=== PATIENT | male | born 1990 | race Caucasian/White ===

== ENCOUNTER 2021-03-31 07:49 | Outpatient (REF) | payer OTHER, SELFPAY ==
--- NOTE | ~2021-03-31 | MR_ITS ---
EXAMINATION: MR CERVICAL SPINE WITHOUT CONTRAST CLINICAL INFORMATION: Cervicalgia. Radiculopathy. Left finger numbness or weakness. COMPARISON: None TECHNIQUE: MRI of the cervical spine was obtained using routine sequences without contrast. FINDINGS: VERTEBRAL BODIES AND PARASPINAL SOFT TISSUES: Normal vertebral body alignment. No acute fracture or subluxation. No loss of vertebral body height. Mild loss of intervertebral disc height at C3-C4 with associated disc desiccation. No marrow edema to suggest acute osseous injury. No abnormal signal within the visualized cord. The paraspinal soft tissues are unremarkable. CERVICOMEDULLARY JUNCTION AND VISUALIZED POSTERIOR FOSSA: Unremarkable. SPINAL LEVELS: C2-C3: No significant disc bulge. No central canal or neural foraminal stenosis. C3-C4: Small broad-based disc bulge which partially effaces the ventral thecal sac. Prominent bilateral uncinate spurring with mild bilateral facet arthropathy causing moderate left and mild right neural foraminal stenosis. C4-C5: Minimal disc bulge which partially effaces the ventral thecal sac. Bilateral uncinate spurring and facet arthropathy causing mild bilateral neural foraminal stenosis. C5-C6: No significant disc bulge. No central canal or neural foraminal stenosis. C6-C7: No significant disc bulge. No central canal or neural foraminal stenosis. C7-T1: Bilateral uncinate spurring causing mild to moderate right and mild left neural foraminal stenosis. No significant disc bulge or central canal stenosis. MR/MR cervical spine wo con IMPRESSION: 1. Broad-based disc bulge at C3-C4 which partially effaces the ventral thecal sac. Bilateral uncinate spurring with mild bilateral facet arthropathy causing moderate left and mild right neural foraminal stenosis. 2. Minimal disc bulge at C4-C5 which partially effaces the ventral thecal sac with bilateral uncinate spurring and facet arthropathy causing mild bilateral neural foraminal stenosis. 3. Bilateral uncinate spurring at C7-T1 with mild to moderate right and mild left neural foraminal stenosis.
== END 2021-03-31 07:50 | disposition home or self-care (01) ==
LOC: HO.MRI 07:49
PROVIDERS: PCP Internal Medicine Geriatric Medicine; Visit Provider Internal Medicine Geriatric Medicine
DX: M54.12 Radiculopathy, cervical region (principal); M54.2 Cervicalgia
CPT/HCPCS: 72141

== ENCOUNTER 2021-11-11 12:24 | Outpatient (REF) | payer OTHER, SELFPAY ==
[2021-11-11 12:39] VITALS: BP 121/60; PULSE 66; RESP 16; TEMP 36.9; O2SAT 98; BMI 26.9
[2021-11-11 14:00] VITALS: BP 132/54; PULSE 65; RESP 16; O2SAT 98
--- NOTE | 2021-11-12 14:04 | P.OP_ITS ---
Operative Note Operative Note Date of Service: 11/11/21 Narrative: Preoperative diagnosis: Lipoma of right lower back, Pilar cyst posterior right scalp Postoperative diagnosis: Lipoma of right lower back and lipoma of right posterior scalp Procedure: Excision of lipoma right lower back and lipoma of right posterior scalp Surgeon: Matheus Whitaker MD President [employer] Consulting: JENNIFER Howard Anesthesia: Local lidocaine 1% with epinephrine Indications for procedure: 31-year-old male patient presenting with enlarging lump in both the posterior scalp and the lower right back Operative findings: Lipoma of right lower back, lipoma posterior right scalp Specimen:Lipoma of right lower back, lipoma posterior right scalp Estimated blood loss: 5 mL Complications: None Procedure details: Patient was brought to the OR placed in a prone position. The site of surgery was confirmed by the patient in both the posterior right back and posterior right scalp. After assuring informed consent the skin was prepped with Betadine and draped in a sterile fashion. Beginning at the lower right back, local anesthesia was infiltrated over the lesion and a transverse incision created with scalpel. This was carried out through subcutaneous tissue and up to the lipoma. The lipoma was then sharply dissected from the surrounding subcutaneous tissue. The lipoma extended below the muscular fascia. This was opened further in the lipoma the excised. Lipoma measured approximately 5 cm in diameter. This was sent to pathology for further examination. After assuring adequate hemostasis the skin was closed using interrupted 3-0 Polysorb sutures in the subcutaneous tissue and dermis. Skin was then closed using a running subcuticular 4-0 Polysorb suture. Steri-Strips were then applied. Attention was then directed to the posterior scalp. Again the skin was anesthetized with lidocaine with epinephrine. A longitudinal incision was then made over the lesion carried out through subcutaneous tissue and up to the wall of the lesion. Will was initially thought to be a Pilar cyst actually turned out more consistent with a lipoma. Sharp dissection was then used to dissect the lesion from the surrounding subcutaneous tissue. This was removed and sent to pathology for further examination. Hemostasis was assured using electrocautery. Dermis was then reapproximated using interrupted 3-0 Polysorb sutures. Skin was closed using 3-0 Prolene sutures. Bacitracin was then applied. Tegaderm dressing was then applied to the lower right back incision. The patient tolerated the procedure well. He was discharged to home in stable condition.
== END 2021-11-11 12:25 | disposition home or self-care (01) ==
LOC: HO.MS 12:24
PROVIDERS: PCP Internal Medicine Geriatric Medicine; Visit Provider Surgery
PROC: (CPT 21933; principal; 2021-11-11 13:00)
PROC: (CPT 21933; 2021-11-11 13:00)
DX: D17.1 Benign lipomatous neoplasm of skin and subcutaneous tissue of trunk (principal)
CPT/HCPCS: 21933; 21011; 88304

== ENCOUNTER 2022-10-17 15:02 | Outpatient (REF) | payer OTHER, SELFPAY ==
--- NOTE | ~2022-10-17 | XR_ITS ---
EXAMINATION: XR LUMBOSACRAL SPINE CLINICAL INFORMATION: Bilateral back pain without sciatica. COMPARISON: None available. TECHNIQUE: Three views of the lumbosacral spine. FINDINGS: There is mild straightening of the normal lumbar lordosis. Mild degenerative disc disease is seen at L2-L3 with mild disc space narrowing and marginal osteophyte formation. The remainder of the intervertebral disc spaces are unremarkable. The vertebral bodies are intact. The soft tissues are unremarkable. XR/XR lumbar spine 2-3V IMPRESSION: L2-L3 mild degenerative disc disease.
== END 2022-10-17 15:03 | disposition home or self-care (01) ==
LOC: HO.HHCX 15:02
PROVIDERS: Visit Provider Registered Nurse
DX: M62.830 Muscle spasm of back (principal); M54.50 Low back pain, unspecified
CPT/HCPCS: 72100

== ENCOUNTER 2024-04-11 15:50 | Outpatient (REF) | payer OTHER, SELFPAY ==
--- OUTSIDE RECORDS SUMMARY | 2024-04-11 15:53 | XMS_ITS | Encounter Summary ---
Author Organization [employer] Address [address] [facility] 7 [place] [address] Care Team Providers Care Packer Sausage And Wiener Name Role Phone Name, Justin GREGORIO Primary Care Provider [phone] Encounter Details Date Type Department Care Team ([facility] Contact Info) Description 04/11/2024 1:40 PM EST Office Visit [facility] [address] [place], [place] [phone] Jelly Varela MD [address] [place] [address] URI, acute (Primary Dx) Social History Tobacco Use Types Packs/Day Years Used Date Smoking Tobacco: Never Smokeless Tobacco: Never Alcohol Use Standard Drinks/Week Comments Yes 0 (1 standard drink = 0.6 oz pur e alcohol) Socially Depression Answer Date Recorded Patient Health Questionnaire-9 Score 10 11/07/2023 Patient Health Questionnaire-9 Score 10 11/07/2023 Last PHQ-9: Questionnaire Data Not on file 0 11/07/2023 Housing Stability Answer Date Recorded What is your housing situation today? I have danieljenn quiñonez 11/07/[address] you li ve. Do you have problems with any of the following? None of the above 11/07/2023 Food Insecurity Answer Date Recorded Within the past 12 months, y ou worried that your food would run out before you got money to buy more: Never True 11/07/2023 Within the past 12 months,th e food you bought just didn't last and you didn't have enough money to get more: Never True 05/2023 Transportation Answer Date Recorded In the past 12 months, has l ack of transportation kept you from medical appts, meetings, work or from getting things needed for daily living? No 11/07/2023 Utilities Answer Date Recorded In the past 12 months, has t he electric, gas, oil or water company threatened to shut off services in your home? No 11/07/2023 Depression Answer Date Recorded Patient Health Questionnaire-2 Score 4 11/07/2023 Internet Access Answer Date Recorded Internet Access Q1 Yes 11/07/2023 Internet Access Q2 Not on file 11/07/2023 Sex and Gender Information Value Date Recorded Sex Assigned at Male 01/03/2022 10:32 AM EDT Legal Sex Male 10:32 AM EDT Gender Identity Male 01/03/2022 10:32 AM EDT Sexual Orientation Straight 01/03/2022 10 :32 AM EDT documented as of this encounter Last Filed Vital Signs Vital Sign Reading Time Taken Comments Blood Pressure 127/74 04/11/2024 1:44 PM EST Pulse 72 04/11/2024 1:44 PM EST Temperature 37 ??C (98.6 ??F) 04/11/2024 1:44 PM EST Respiratory Rate 18 04/11/2024 1:44 PM EST Oxygen Saturation 98% 04/11/2024 1:44 PM EST Inhaled Oxygen Concentration - - Weight 96.6 kg (213 lb) 04/11/2024 1:44 PM EST Height 185.5 cm (6' 1.02 ) 04/11/2024 1:44 PM ES T Body Mass Index 28.09 04/11/2024 1:44 PM EST documented in this encounter Progress Notes * Jelly Varela MD - 04/11/2024 1:40 PM EST Subjective Patient ID: Wayne Marie is a 34 y.o. male who presents for URI. Wayne is a 34-year-old healthy male patient of Dr. Painter. He is here for 7 days history of having nasal congestion, body aches and feeling rundown. He has been taking Tylenol and ibuprofen as needed. He has also been using Afrin nasal spray for congestion as it has helping him sleep at night and breathe better. Denies any high fevers. 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 His girlfriend is also having similar symptoms. He tested negative for COVID and flu today in the clinic. No recent travels. History provided by: Patient mold swabber used: No Cough This is a new problem. The current episode started in the past 7 days. The problem has been waxing and waning. The problem occurs every few minutes. The cough is Productive of sputum. Associated symptoms include ear congestion, headaches, nasal congestion and rhinorrhea. Pertinent negatives includeno chest pain, chills, ear pain, heartburn, hemoptysis, myalgias, postnasal drip, rash, sore throat, shortness of breath, sweats, weight loss or wheezing. Nothing aggravates the symptoms. There is nohistory of asthma, COPD or environmental allergies. Review of Systems Constitutional: Negative for chills and weight loss. HENT: Positive for rhinorrhea. Negative for ear pain, postnasal drip and sore throat. Respiratory: Positive for cough. Negative for hemoptysis, shortness of breath and wheezing. Cardiovascular: Negative for chest pain. Gastrointestinal: Negative for heartburn. Musculoskeletal: Negative for myalgias. Skin: Negative for rash. Allergic/Immunologic: Negative for environmental allergies. Neurological: Positive for headaches. Objective BP 127/74 (BP Location: Right arm, Patient Position: Sitting, BP Cuff Size: Adult) Pulse 72 Temp 98.6 ??F (37 ??C) (Oral) Resp 18 Ht 6' 1.02 (1.855 m) Wt 213 lb (96.6 kg) SpO2 98% BMI 28.09 kg/m?? Physical Exam Vitals reviewed. Constitutional: General: He is not in acute distress. Appearance: Normal appearance. He is not toxic-appearing. HENT: Head: Normocephalic. Right Ear: Tympanic membrane and ear canal normal. Left Ear: Tympanic membrane and ear canal normal. Nose: Congestion present. Mouth/Throat: Mouth: Mucous membranes are moist. Pharynx: Oropharynx is clear. No oropharyngeal exudate. Eyes: Extraocular Movements: Extraocular movements intact. Pupils: Pupils are equal, round, and reactive to light. Cardiovascular: Rate and Rhythm: Normal rate and regular rhythm. Heart sounds: Normal heart sounds. No murmur heard. Pulmonary: Effort: Pulmonary effort is normal. No respiratory distress. Breath sounds: No stridor. No wheezing or rhonchi. Musculoskeletal: General: Normal range of motion. Cervical back: Normal range of motion. Lymphadenopathy: Cervical: No cervical adenopathy. Skin: Capillary Refill: Capillary refill takes less than 2 seconds. Findings: No rash. Neurological: Mental Status: He is oriented to person, place, and time. Mental status is at baseline. Psychiatric: Mood and Affect: Mood normal. Behavior: Behavior normal. Thought Content: Thought content normal. Judgment: Judgment normal. Assessment/Plan Diagnoses and all orders for this visit: URI, acute Comments: Patient has what seems to be a viral upper respiratory infection. He seems to be improving already.Tested negative for COVID and flu today in clinic. PCR for flu and COVID sent to lab, lab results will be given to patient if positive. Continue supportive management and good hydration. Azelastine nasal spray and benzonatate Perles as needed cough prescribed as needed. Return to clinic if worsen. Fasting labs ordered by PCP in October not completed yet, patient was asked to get them done when possible. Orders: - Influenza A (ID NOW Rapid Molecular) - Influenza B (ID NOW Rapid Molecular) - POCT Rapid COVID Ag - SARS-CoV-2 RNA, Influenza A/B, and RSV RNA, Ql NAAT Other orders - azelastine (Astelin) 0.1 % nasal spray; Administer 2 sprays into each nostril 2 times daily. - benzonatate (Tessalon Perles) 100 MG capsule; Take 1 capsule prn cough every 8 hours documented in this encounter Plan of Treatment Scheduled Orders Name Type Priority Associated Diagnoses Orde r Schedule SARS-CoV-2 RNA, Influenza A/B, and RSV RNA, Ql NAAT Microbiology Routine URI, acute Ordered: 04/11/2024 documented as of this encounter Procedures Procedure Name Priority Date/Time Associated Diagnosis Comments POCT RAPID COVID ANTIGEN Routine 04/11/2024 2:25 PM EST URI, acute POCT INFLUENZA B (ID NOW RAPID MOLECULAR) Routine 04/11/2024 2:24 PM EST URI, acute POCT INFLUENZA A (ID NOW RAPID MOLECULAR) Routine 04/11/2024 2:23 PM EST URI, acute documented in this encounter Results * POCT Rapid COVID Ag (04/11/2024 2:25 PM EST) Pathologist [facility] Rapid COVID Ag Negative QC Media Lot # Comment:[id number] Lot# Expiration Date Comment:07/14/2025 Swab 04/11/2024 2:25 PM EST us Jelly Varela MD POINT OF CARE TEST ENTER/EDIT ORDERABLES Final Result * Influenza B (ID NOW Rapid Molecular) (04/11/2024 2:24 PM EST) [facility] Influenza B Negative Negative, Indeterminate [facility] QC Media Lot # [facility] Comment:[id number] Lot# Expiration Date [facility] Comment:09/02/2024 Swab 04/11/2024 2:24 PM EST Jelly Varela MD POINT OF CARE TEST ENTER/EDIT ORDERABLES Final Result Performing Organization Address [facility] Co de Phone Number [facility] [address] [place] [phone] * Influenza A (ID NOW Rapid Molecular) (04/11/2024 2:23 PM EST) [facility] Influenza A Negative Negative, Indeterminate [facility] QC Media Lot # [facility] Comment:[id number] Lot# Expiration Date [facility] Comment:09/02/2024 Swab 04/11/2024 2:23 PM EST us Jelly Varela MD POINT OF CARE TEST ENTER/EDIT ORDERABLES Final Result Performing Organization Address City/[facility]/ZIP Co de Phone Number [facility] [address] [place] [phone] documented in this encounter Visit Diagnoses Diagnosis URI, acute- Primary Acute upper respiratory infections of unspecified site documented in this encounter Additional Health Concerns Assessment Noted Time PHQ-9 Depression Total Score: 10 024 3:16 PM EDT documented as of this encounter Care Teams Packer Sausage And Wiener Relationship Specialty Start Date End Date Name, MD Justin [address] [place] [address] PCP - General Internal Medicine 11/08/23 documented as of this encounter
--- OUTSIDE RECORDS SUMMARY | 2024-04-11 15:54 | XMS_ITS | Clinical Summary ---
Author Organization [employer] Address [address] [place] [address] [address] [place] [address] Care Team Providers Care Professional Programmer Analyst Name Role Phone Name, Justin GREGORIO Primary Care Provider [phone] Allergies Active Allergy Reactions Criticality Noted Date Comments Penicillins Unknown 12/15/2016 Medications azelastine (Astelin) 0.1 % nasal spray Administer 2 sprays into each nostril 2 times daily. 30 mL 5 04/11/19 26 Active benzonatate (Tessalon Perles) 100 MG capsule Take 1 capsule prn cough every 8 hours 20 capsule 5 Active tiZANidine (Zanaflex) 2 MG tabletIndicati ons:Lumbar paraspinal muscle spasm,Acute bilateral low back pain without sciatica Take 1 tablet (2 mg) by mouth every 6 (six) hours if needed for muscle spasms. 30 tablet 3 04/11/19 25 Discontinu ed(Therapy completed) naproxen (Naprosyn) 500 MG tabletIndicati ons:Lumbar paraspinal muscle spasm,Acute bilateral low back pain without sciatica Take 1 tablet (500 mg) by mouth 2 times daily. 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 single episode (CMS/HCC) 04/04/2018 Encounters Date Type Department Care Team Description 04/11/2024 1:40 PM EST Office Visit [facility] [address] [place] [address] Jelly Varela MD URI, acute (Primary Dx) 04/11/2024 Travel from Last 3 Months Immunizations Name Administration Dates Next Due Influenza Injectable Quadriv alant Preservative Free IIV4 MDCK 12/01/2019 Influenza injectable quadriv alent IIV4 with preservative 12/15/2016 Influenza injectable quadrivalent preservative f ree 11/24/2018,11/17/2014 Tdap 07/22/2021 Family History Medical History Relation Name Comments Diabetes insipidus Father Relation Name Status Comments Father Social History Tobacco Use Types Packs/Day Years Used Date Smoking Tobacco: Never Smokeless Tobacco: Never Tobacco Cessation:Counseling Given: Not Answered Alcohol Use Standard Drinks/Week Comments Yes 0 (1 standard drink = 0.6 oz pur e alcohol) Socially Depression Answer Date Recorded Patient Health Questionnaire-9 Score 10 11/07/2023 Patient Health Questionnaire-9 Score 10 11/07/2023 Last PHQ-9: Questionnaire Data Not on file 0 11/07/2023 Housing Stability Answer Date Recorded What is your housing situation today? I have daniel quiñonez 11/07/[address] you [...] Orientation Straight 01/03/2022 10 :32 AM EDT Last Filed Vital Signs Vital Sign Reading [...] Mass Index 28.09 04/11/2024 1:44 PM EST Plan of Treatment Health Maintenance Due Date Last Done Comments HIV Screening 1992 Alcohol/Substance Use Screening 2004 Family Planning (PISQ) 2007 Hepatitis C Screening 2010 Hepatitis B Vaccines (1 of 3 - 19+ 3-dose series) 2011 COVID-19 Vaccine ( season) 2023 04/05/2021, 06/15/2020, 05/18/2020 Influenza Vaccine (#1) 2023 , 11/24/2018, 12/15/2016, Additional history exists Depression Monitoring (PHQ-9) 05/06/2024 11/07/2023, 11/07/2023 Depression Screening 11/06/2024 11/07/2023, 11/07/19 24 SDOH Screening 11/06/2024 11/07/2023 Tobacco Screening 11/06/2024 11/07/2023 DTaP/Tdap/Td Vaccines (2 - Td or Tdap) 07/23/2031 07/22/2021 Zoster Vaccines (1 of 2) 2042 RSV Patients and Patients Aged 60 years or older (1 - 1-dose 75+ series) 2067 HIB Vaccines Aged Out No longer eligi ble based on patient's age to complete this topic HPV Vaccines Aged Out No longer eligi ble based on patient's age to complete this topic Hepatitis A Vaccines Aged Out No long er eligible based on patient's age to complete this topic IPV Vaccines Aged Out No longer eligi ble based on patient's age to complete this topic Meningococcal Vaccine Aged Out No vicenta marleny eligible based on patient's age to complete this topic Pneumococcal Vaccine: Pediatrics (0 to 5 Years) and At-Risk Patients (6 to 49) Years) Aged Out No longer eligible based on patient's age to complete this topic RSV under 20 months Aged Out No longe r eligible based on patient's age to complete this topic Rotavirus Vaccines Aged Out No longer eligible based on patient's age to complete this topic Procedures Procedure Name Priority Date/Time Associated Diagnosis Comments POCT RAPID COVID ANTIGEN Routine 04/11/2024 2:25 PM EST URI, acute POCT INFLUENZA B (ID NOW RAPID MOLECULAR) Routine 04/11/2024 2:24 PM EST URI, acute POCT INFLUENZA A (ID NOW RAPID MOLECULAR) Routine 04/11/2024 2:23 PM EST URI, acute from Last 3 Months Results * POCT Rapid COVID Ag (04/11/2024 2:25 PM EST) Rapid COVID Ag Negative QC Media Lot # Comment:[id number] Lot# Expiration Date Comment:07/14/2025 Swab 04/11/2024 2:25 PM EST Jelly Varela MD POINT OF CARE TEST ENTER/EDIT ORDERABLES Final Result * Influenza B (ID NOW Rapid Molecular) (04/11/2024 2:24 PM EST) Influenza B Negative Negative, Indeterminate [facility] QC Media Lot # [facility] Comment:[id number] Lot# Expiration Date [facility] Comment:09/02/2024 Swab 04/11/2024 2:24 PM EST us Jelly Varela MD POINT OF CARE TEST ENTER/EDIT ORDERABLES Final Result Performing Organization Address City/[facility]/ZIP Co de Phone Number [facility] [address] [place] [address] [phone] * Influenza A (ID NOW Rapid Molecular) (04/11/2024 2:23 PM EST) Influenza A Negative Negative, Indeterminate [facility] QC Media Lot # [facility] Comment:[id number] Lot# Expiration Date [facility] Comment:09/02/2024 Swab 04/11/2024 2:23 PM EST us Jelly Varela MD POINT OF CARE TEST ENTER/EDIT ORDERABLES Final Result Performing Organization Address [facility] Co de Phone Number [facility] [address] [place] [address] [phone] from Last 3 Months Insurance [facility] Care Teams Professional Programmer Analyst Relationship Specialty Start Date End Date Name, MD Justin [address] [place] [address] PCP - General Internal Medicine 11/08/23
[2024-04-11 18:20] LABS: Influenza A PCR NEGATIVE (Negative); Influenza B PCR NEGATIVE (Negative); Resp Syncy Virus RNA Qual PCR NEGATIVE (Negative); SARS COV2 PCR INHOUSE NEGATIVE (Negative)
== END 2024-04-11 15:51 | disposition home or self-care (01) ==
LOC: HO.CHCLNP 15:50
PROVIDERS: Visit Provider Pediatrics
DX: J06.9 Acute upper respiratory infection, unspecified (principal)
CPT/HCPCS: 0241U

== ENCOUNTER → 2024-07-23 15:11 | Outpatient (BNVA) | payer OTHER, SELFPAY | PROVIDERS: PCP Internal Medicine Geriatric Medicine; Visit Provider Physician Assistant Medical | DX: S67.01XA Crushing injury of right thumb, initial encounter (principal); S60.521A Blister (nonthermal) of right hand, initial encounter; W23.1XXA Caught, crushed, jammed, or pinched between stationary objects, initial encounter; M79.81 Nontraumatic hematoma of soft tissue; F98.8 Other specified behavioral and emotional disorders with onset usually occurring in childhood and adolescence; Z02.79 Encounter for issue of other medical certificate | CPT/HCPCS: 73140; 99203 ==

== ENCOUNTER 2025-01-13 07:30 | Outpatient (REF) | payer BC, SELFPAY ==
--- OUTSIDE RECORDS SUMMARY | 2025-01-13 07:34 | XMS_ITS | Encounter Summary ---
Author Organization [employer] Address [address] [facility] [address] [place] [address] Care Team Providers Care Pressurizer Name Role Phone Name, Justin GREGORIO Primary Care Provider [phone] Encounter Details Date Type Department Care Team (Late st Contact Info) Description 01/08/2025 Orders Only [facility] [address] [place], [place] [phone] Name, MD Justin [address] [place], [place] [phone] Screening for diabetes mellitus (Primary Dx); Screening for cholesterol level Social History Tobacco Use Types Packs/Day Years [...] AM EDT documented as of this encounter Plan of Treatment Upcoming Encounters Date Type Department Care Team (Late st Contact Info) Description 01/27/2025 2:45 PM EST Office Visit [facility] [address] [place] [phone] NameJustin MD [address] [place] [address] Scheduled Orders Name Type Priority Associated Diagnoses Orde r Schedule CBC auto differential Lab Routine Screening for diabetes mellitus Screening for cholesterol level Expected: 01/08/2025 (Approximate), Expires: 01/08/2026 Comprehensive Metabolic Panel Lab Routine Screening for diabetes mellitus Screening for cholesterol level Expected: 01/08/2025 (Approximate), Expires: 01/08/2026 Lipid Panel, Standard Lab Routine Screening for diabetes mellitus Screening for cholesterol level Expected: 01/08/2025 (Approximate), Expires: 01/08/2026 documented as of this encounter Visit Diagnoses Diagnosis Screening for diabetes mellitus- Primary Screening for cholesterol level documented in this encounter Additional Health Concerns Assessment Noted Time PHQ-9 Depression Total Score: 10 024 3:16 PM EDT documented as of this encounter Care Teams Pressurizer Relationship Specialty Start Date End Date Jutsin Painter MD [address] [place] [phone] PCP - General Internal Medicine 11/08/23 documented as of this encounter
--- OUTSIDE RECORDS SUMMARY | 2025-01-13 07:34 | XMS_ITS | Clinical Summary ---
Author Organization [employer] Address [address] [place] [address] [address] [place] [address] Care Team Providers Care Automatic Drill Operator Name Role Phone Justin Painter MD Primary Care Provider [phone] Allergies Active Allergy Reactions Criticality Noted Date Comments Penicillins Unknown 12/15/2016 Medications azelastine (Astelin) 0.1 % nasal spray Administer 2 sprays into each nostril 2 times daily. 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 ([facility]/HCC) ([facility]) 04/04/2018 Encounters Date Type Department Care Team Description 01/08/2025 Orders Only [facility] [address] [place] [address] Name, MD Justin Screening for diabetes mellitus (Primary Dx); Screening for cholesterol level from Last 3 Months Immunizations Immunization Administration Dates Next Due Influenza Injectable Quadriv [...] 72 04/11/2024 1:44 PM EST Temperature 37 C (98.6 F) 04/11/2024 1:44 PM EST Respiratory Rate 18 04/11/2024 1:44 PM EST Oxygen Saturation 98% 04/11/2024 1:44 PM EST Inhaled Oxygen Concentration - - Weight 96.6 kg (213 lb) 04/11/2024 1:44 PM EST Height 185.5 cm (6' 1.02 ) 04/11/2024 1:44 PM ES T Body Mass Index 28.09 04/11/2024 1:44 PM EST Plan of Treatment Upcoming Encounters Date Type Department Care Team (Cira st Contact Info) Description 01/27/2025 2:45 PM EST Office Visit [facility] [address] [place] [address] Name, MD Justin [address] [place] [address] Health Maintenance Due Date Last Done Comments HIV Screening 1992 Alcohol/Substance Use Screening 2004 Family Planning (PISQ) 2007 HPV Vaccines (1 - Male 3-dose series) 2007 Hepatitis C Screening 2010 Hepatitis B Vaccines (1 of 3 - 19+ 3-dose series) 2011 Depression Monitoring 05/06/2024 11/07/2023, 024 COVID-19 Vaccine ( season) 2024 04/05/2021, 06/15/2020, 05/18/2020 Influenza Vaccine (#1) 2024 , 11/24/2018, 12/15/2016, Additional history exists SDOH Screening 11/06/2024 11/07/2023 Tobacco Screening 11/06/2024 11/07/2023 Disability Screening 04/11/2025 04/11/2024 DTaP/Tdap/Td Vaccines (2 - Td or Tdap) [...] patient's age to complete this topic Meningococcal B Vaccine Aged Out No l onger eligible based on patient's age to complete this topic Meningococcal Vaccine Aged Out No vicenta marleny eligible based on patient's age to complete this topic Pneumococcal Vaccine: Pediatrics (0 to 5 Years) and At-Risk Patients (6 to 49) Years Aged Out No longer eligible based on patient's age to complete this topic RSV under 20 months Aged Out No longe r eligible based on patient's age to complete this topic Rotavirus Vaccines Aged Out No longer eligible based on patient's age to complete this topic Insurance [facility] HMO Care Teams Automatic Drill Operator Relationship Specialty Start Date End Date Name, MD Justin [address] [place] [address] PCP - General Internal Medicine 11/08/23
[2025-01-13 07:45] LABS: MANUAL DIFF FLAG NO
[2025-01-13 08:27] LABS: Hematocrit 40.4 % (42.0-52.0); Hemoglobin 13.7 g/dl (14.0-18.0); Imm Gran Abs Auto 0.02 X10*3/uL (0.00-0.03); Imm Gran Pct Auto 0.4 % (0.0-0.4); Lymphocytes Absolute Auto 1.7 X10*3/uL (1.2-4.9); Mean Corpuscular HGB Conc 33.9 g/dl (31.0-36.0); Mean Corpuscular Hemoglobin 30.0 pg (27.0-33.0); Mean Corpuscular Volume 88.4 fL (80.0-98.0); NRBC Abs Auto 0.000 X10*3/uL (0.0-0.012); NRBC Pct Auto 0.0 /100WBC (0.0-0.2); Platelet Count 268 X10*3/uL (160-400); Red Blood Count 4.57 X10*6/uL (4.60-5.80); White Blood Count 4.5 X10*3/uL (4.8-10.8)
[2025-01-13 08:50] LABS: Alanine Aminotransferase 67 U/L (0-40); Albumin Level 4.6 g/dL (3.5-5.0); Alkaline Phosphatase 77 U/L (39-117); Anion Gap 12 (12-20); Aspartate Amino Transferase 49 U/L (5-37); Blood Urea Nitrogen 14 mg/dL (9-16); Calcium 9.3 mg/dL (8.4-10.2); Carbon Dioxide 25 mmol/L (22-29); Chloride 105 mmol/L (96-108); Cholesterol 165 mg/dL (<200); Estimated Glomerular Filt Rate > 60; HDL Cholesterol 39 mg/dL (>40); Potassium 4.4 mmol/L (3.3-5.1); Sodium 138 mmol/L (135-145); Total Protein 7.2 g/dL (6.5-8.0); Triglycerides 137 mg/dL (<150)
== END 2025-01-13 07:31 | disposition home or self-care (01) ==
LOC: HO.LAB 07:30
PROVIDERS: PCP Internal Medicine Geriatric Medicine; Visit Provider Internal Medicine Geriatric Medicine
DX: Z13.1 Encounter for screening for diabetes mellitus (principal); Z13.220 Encounter for screening for lipoid disorders; Z13.6 Encounter for screening for cardiovascular disorders
CPT/HCPCS: 36415; 80053; 80061; 85025

== ENCOUNTER 2025-01-29 07:23 | Outpatient (REF) | payer BC, SELFPAY ==
--- OUTSIDE RECORDS SUMMARY | 2025-01-27 14:45 | XMS_ITS | Encounter Summary ---
Author Organization [employer] Address [address] [facility] [address] [place] [address] Care Team Providers Care Management Sme Name Role Phone Name, Justin GREGORIO Primary Care Provider [phone] Encounter Details Date Type Department Care Team (Latest Contact Info) Description 01/27/2025 2:45 PM EST Office Visit [facility] MEDICINE [address] [place] [phone] Name, MD Justin [address] [place] [address] Healthcare maintenance (Primary Dx); Osteoarthritis of multiple joints, unspecified osteoarthritis type; Dietary counseling; Exercise counseling Social History Tobacco Use Types Packs/Day Years Used Date Smoking Tobacco: Never Smokeless Tobacco: Never Tobacco Cessation:Counseling Given: Not Answered Alcohol Use Standard Drinks/Week Comments Yes 0 (1 standard drink = 0.6 oz pur e alcohol) Socially Depression Answer Date Recorded Patient Health Questionnaire-9 Score 3 01/27/2025 Patient Health Questionnaire-9 Score 3 01/27/2025 Last PHQ-9: Questionnaire Data Not on file 1 03/29/2024 Housing Stability Answer Date Recorded What is your housing situation today? I have daniel quiñonez 01/27/[address] you li ve. Do you have problems with any of the following? None of the above 01/27/2025 Food Insecurity Answer Date Recorded Within the past 12 months, y ou worried that your food would run out before you got money to buy more: Never True 01/27/2025 Within the past 12 months,th e food you bought just didn't last and you didn't have enough money to get more: Never True Transportation Answer Date Recorded In the past 12 months, has l ack of transportation kept you from medical appts, meetings, work or from getting things needed for daily living? No 01/27/2025 Utilities Answer Date Recorded In the past 12 months, has t he electric, gas, oil or water company threatened to shut off services in your home? No 01/27/2025 Depression Answer Date Recorded Patient Health Questionnaire-2 Score 0 01/27/2025 Internet Access Answer Date Recorded Internet Access Q1 No 01/27/2025 Internet Access Q2 Not on file 01/27/2025 Sex and Gender Information Value Date Recorded Sex Assigned at Male 01/03/2022 10:32 AM EDT Legal Sex Male 10:32 AM EDT Gender Identity Male 01/03/2022 10:32 AM EDT Sexual Orientation Straight 01/03/2022 10 :32 AM EDT documented as of this encounter Last Filed Vital Signs Vital Sign Reading Time Taken Comments Blood Pressure 130/74 01/27/2025 3:00 PM EST Pulse 70 01/27/2025 3:00 PM EST Temperature 36.2 C (97.1 F) 01/27/2025 3:00 PM EST Respiratory Rate 18 01/27/2025 3:00 PM EST Oxygen Saturation 97% 01/27/2025 3:00 PM EST Inhaled Oxygen Concentration - - Weight 104 kg (228 lb 12.8 oz) 01/27/2025 3:00 P M EST Height 188 cm (6' 2 ) 01/27/2025 3:00 PM EST Body Mass Index 29.38 01/27/2025 3:00 PM EST documented in this encounter Functional Status * Over the past 2 weeks, how often have you been bothered by any of the following problems? Question Answer Date of Assessment Author Patient Health Questionnaire -2 Score 0 01/27/2025 3:03 PM EST Manuel Herzog MA * Little interest or pleasure in doing things Answer Date of Assessment Author Not at all 01/27/2025 3:03 PM EST Elio Herzog MA * Feeling down, depressed, or hopeless Answer Date of Assessment Author Not at all 01/27/2025 3:03 PM EST Elio Herzog MA * Trouble falling or staying asleep, or sleeping too much Answer Date of Assessment Author Not at all 01/27/2025 3:03 PM Elio Bonilla MA * Feeling tired or having little energy Answer Date of Assessment Author Not at all 01/27/2025 3:03 PM Elio Bonilla MA * Poor appetite or overeating Answer Date of Assessment Author Not at all 01/27/2025 3:03 PM Elio Bonilla MA * Feeling bad about yourself - or that you are a failure or have let yourself or your family down Answer Date of Assessment Author Not at all 01/27/2025 3:03 PM Elio Bonilla MA * Trouble concentrating on things, such as reading the newspaper or watching television Answer Date of Assessment Author Nearly every day 01/27/2025 3:03 PM Elio Bonilla MA * Moving or speaking so slowly that other people could have noticed? Or the opposite - being so fidgety or restless that you have been moving around a lot more than usual. Answer Date of Assessment Author Not at all 01/27/2025 3:03 PM Elio Bonilla MA * Thoughts that you would be better off or hurting yourself in some way Answer Date of Assessment Author Not at all 01/27/2025 3:03 PM Elio Bonilla MA * Patient Health Questionnaire-9 Score Answer Date of Assessment Author 3 01/27/2025 3:03 PM Elio Bonilla MA * Over the last 2 weeks, how often have you been bothered by any of the following problems? Question Answer Date of Assessment Author Feeling nervous, anxious, or on edge 1 01/27/2025 3:03 PM Manuel Bonilla MA Not being able to stop or control worrying 1 01/27/2025 3:03 PM Manuel Bonilla MA Worrying too much about different things 1 01/27/2025 3:03 PM Manuel Bonilla MA Trouble relaxing 1 01/27/2025 3:03 PM Elio Tellez MA Being so restless that it is hard to sit still 1 01/27/2025 3:03 PM Manuel Bonilla MA Becoming easily annoyed or irritable 1 01/27/2025 3:03 PM Manuel Bonilla MA Feeling afraid as if somethi ng awful might happen 1 01/27/2025 3:03 PM Manuel Bonilla MA MT-7 Total Score 7 01/27/2025 3:03 PM Elio Bonilla MA * How difficult have these problems made it for you to do your work, take care of things at home, or get along with other people? Answer Date of Assessment Author Very difficult 01/27/2025 3:03 PM Elio Bonilla MA documented as of this encounter Progress Notes * Nany Lerma NP - 01/27/2025 2:45 PM EST Subjective: Wayne Marie is a 34 y.o. male with no significant medical history who presents to the office fora physical exam. 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 He is physically active and has a very good exercise tolerance. He does not drink alcohol in excess, he does not smoke, does not use illicit drugs. He is and monogamous. He had negative STD testing several years ago. Mental health: No data recorded Allergies[4] Review of Systems Constitutional: Negative for activity change, appetite change, chills, diaphoresis, fatigue, fever and unexpected weight change. HENT: Negative for congestion, ear pain, hearing loss, rhinorrhea, sinus pain and sore throat. Eyes: Negative for photophobia, pain, discharge, redness, itching and visual disturbance. Respiratory: Negative for cough, chest tightness, shortness of breath, wheezing and stridor. Cardiovascular: Negative for chest pain, palpitations and leg swelling. Gastrointestinal: Negative for abdominal distention, abdominal pain, blood in stool, constipation, diarrhea, nausea and vomiting. Endocrine: Negative for polydipsia, polyphagia and polyuria. Genitourinary: Negative for difficulty urinating, dysuria, flank pain and hematuria. Musculoskeletal: Positive for arthralgias. Negative for back pain, joint swelling, myalgias and neck pain. Skin: Negative for color change and rash. Neurological: Negative for dizziness, syncope, weakness, light-headedness, numbness and headaches. Hematological: Does not bruise/bleed easily. Psychiatric/Behavioral: Negative for dysphoric mood and sleep disturbance. The patient is not nervous/anxious. There were no vitals filed for this visit. Physical Exam Constitutional: General: He is not in acute distress. Appearance: He is normal weight. He is not ill-appearing, toxic-appearing or diaphoretic. HENT: Right Ear: Tympanic membrane, ear canal and external ear normal. Left Ear: Tympanic membrane, ear canal and external ear normal. Nose: No congestion or rhinorrhea. Mouth/Throat: Mouth: Mucous membranes are moist. Pharynx: Oropharynx is clear. No oropharyngeal exudate or posterior oropharyngeal erythema. Eyes: Extraocular Movements: Extraocular movements intact. Conjunctiva/sclera: Conjunctivae normal. Pupils: Pupils are equal, round, and reactive to light. Cardiovascular: Rate and Rhythm: Normal rate and regular rhythm. Pulses: Normal pulses. Heart sounds: Normal heart sounds. No murmur heard. No friction rub. No gallop. Pulmonary: Effort: Pulmonary effort is normal. No respiratory distress. Breath sounds: Normal breath sounds. No stridor. No wheezing, rhonchi or rales. Chest: Chest wall: No tenderness. Abdominal: General: Abdomen is flat. Bowel sounds are normal. There is no distension. Palpations: Abdomen is soft. There is no mass. Tenderness: There is no abdominal tenderness. There is no right CVA tenderness, left CVA tenderness, guarding or rebound. Hernia: No hernia is present. Musculoskeletal: General: No swelling, tenderness, deformity or signs of injury. Cervical back: No tenderness. Right lower leg: No edema. Left lower leg: No edema. Lymphadenopathy: Cervical: No cervical adenopathy. Skin: General: Skin is warm and dry. Findings: No lesion or rash. Neurological: General: No focal deficit present. Mental Status: He is alert and oriented to person, place, and time. Motor: No weakness. Gait: Gait normal. Psychiatric: Mood and Affect: Mood normal. Behavior: Behavior normal. Thought Content: Thought content normal. Judgment: Judgment normal. Assessment & Plan Healthcare maintenance Diet and cholesterol management: - LDL cholesterol and HDL cholesterol at threshold levels. Dietary habits include stress eating andhigh salt intake. - Recommended increasing dietary fiber and reducing saturated fat and salt intake. Advised bringinghealthy snacks to work for improved dietary choices. Laboratory monitoring: - Need for repeat laboratory evaluation due to prior abnormal liver enzymes and family history of diabetes. Osteoarthritis of multiple joints, unspecified osteoarthritis type - Osteoarthritis in the neck and left hip, secondary to prior sports injuries. Symptoms managed with intermittent naproxen and physical activity. No current interference with activities of daily living. - Recommended continued physical activity and strengthening of periarticular muscles. Advised use of naproxen as needed for symptom flares. Dietary counseling Dietary Recommendations: Fruits, vegetables, whole grains, protein foods, and fat-free or low-fat dairy products are healthychoices. Eat different types of protein foods in your diet. This can include seafood, lean meats, poultry, beans, peas, lentils, nuts, seeds, soy products, and eggs. Limit foods and beverages higher in added sugars, saturated fat, and sodium. Exercise counseling Exercise Recommendations: At least 150 minutes of moderate-intensity physical activity per week, or an equivalent combinationof moderate- and vigorous-intensity activity Routine Screening and Health Maintenance Optometry: No Dental: Yes ASCVD risk: 34 y.o. male LDL goal is under 100 [place] 10-year risk <10% Lab Review: orders written for new lab studies as appropriate; see orders Current Medications[5] Immunization History Administered Date(s) Administered Influenza Injectable Quadrivalant Preservative Free IIV4 MDCK 12/01/2019 Influenza injectable quadrivalent IIV4 with preservative 12/15/2016 Influenza injectable quadrivalent preservative free 11/17/2014, 11/24/2018 Moderna Covid-19 Vaccine 12+ 05/18/2020, 06/15/2020, 04/05/2021 Tdap 07/22/2021 No follow-ups on file. [facility] ICD 9 CODER Attestation ICD 9 CODER Resident Attestation: Patient was seen and evaluated by Nany SANCHEZ , in collaboration with Justin Painter MD who has reviewed my assessment and plan. I, Justin Painter MD , have reviewed the resident's note and agree with the assessment & plan of care as documented above. This note was drafted using Ambient (AI) technology. The patient/patient's guardian has been informed and has consented to the use of this technology: Yes [1] Patient Active Problem List Diagnosis Moderate major depressive disorder with anxiety single episode (CMS/HCC) (CMS/HCC) (HCC) Poison gavin dermatitis [2] No past surgical history on file. [3] Family History Problem Relation Name Age of Onset Diabetes insipidus Father [4] Allergies Allergen Reactions Penicillins Unknown [5] No current outpatient medications on file. No current facility-administered medications for this visit. documented in this encounter Miscellaneous Notes * Assessment & Plan Note - Nany Lerma NP - 01/27/2025 2:45 PM ESTAssociated Problem(s): Osteoarthritis of multiple joints - Osteoarthritis in the neck and left hip, secondary to prior sports injuries. Symptoms managed with intermittent naproxen and physical activity. No current interference with activities of daily living. - Recommended continued physical activity and strengthening of periarticular muscles. Advised use of naproxen as needed for symptom flares. documented in this encounter Plan of Treatment Not on file documented as of this encounter Visit Diagnoses Diagnosis Healthcare maintenance- Primary Osteoarthritis of multiple joints, unspecified osteoarthritis type Dietary counseling Dietary surveillance and counseling Exercise counseling documented in this encounter Additional Health Concerns Assessment Noted Time PHQ-9 Depression Total Score: 3 01/28/20 25 3:03 PM EST documented as of this encounter Care Teams Management Sme Relationship Specialty Start Date End Date Name, MD Justin [address] [place] [address] PCP - General Internal Medicine 11/08/23 documented as of this encounter
--- OUTSIDE RECORDS SUMMARY | 2025-01-29 07:29 | XMS_ITS | Encounter Summary ---
Author Organization [employer] Address [address] [facility] [address] [place] [address] Care Team Providers Care Chief Operator Hydroformer Name Role Phone Name, Justin GREGORIO Primary Care Provider [phone] Encounter Details Date Type Department Care Team (Latest Contact Info) Description 01/27/2025 Travel Social History Tobacco Use Types Packs/Day Years [...] AM EDT documented as of this encounter Functional Status * Over the past 2 weeks, how often have you been bothered by any of the following problems? Question Answer Date of Assessment Author Patient Health Questionnaire -2 Score 0 01/27/2025 3:03 PM Manuel Bonilla MA * Little interest or pleasure in doing things Answer Date of Assessment Author Not at all 01/27/2025 3:03 PM Elio Bonilla MA * Feeling down, depressed, or hopeless Answer Date of Assessment Author Not at all 01/27/2025 3:03 PM Elio Bonilla MA * Trouble falling or staying asleep, [...] MA Trouble relaxing 1 01/27/2025 3:03 PM EST Elio Mendosa MA Being so restless that it is [...] Bonilla MA documented as of this encounter Plan of Treatment Not on file documented as of this encounter Visit Diagnoses Not on filedocumented in this encounter Additional Health Concerns Assessment Noted Time PHQ-9 Depression Total Score: 3 01/28/20 25 3:03 PM EST documented as of this encounter Care Teams Chief Operator Hydroformer Relationship Specialty Start Date End Date Name, MD Justin [address] [place] [address] PCP - General Internal Medicine 11/08/23 documented as of this encounter
--- OUTSIDE RECORDS SUMMARY | 2025-01-29 07:29 | XMS_ITS | Encounter Summary ---
Author Organization [employer] Address [address] [facility] [address] [place] [address] Care Team Providers Care Warehouse Manager Name Role Phone Name, Justin GREGORIO Primary Care Provider [phone] Encounter Details Date Type Department Care Team (Latest Contact Info) Description 01/15/2025 Results Follow-Up [facility] MED[facility]INE [address] [place], [place] [phone] Name, MD Justin [address] [place] [address] CBC auto differential, Comprehensive Metabolic Panel, Lipid Panel, Standard Social History Tobacco Use Types Packs/Day Years [...] as of this encounter Plan of Treatment Scheduled Orders Name Type Priority Associated Diagnoses Orde r Schedule CBC auto differential Lab Routine Anemia, unspecified type Expected: 01/15/2025 (Approximate), Expires: 01/15/2026 Comprehensive Metabolic Panel Lab Routine Transaminitis Expected: 01/15/2025 (Approximate), Expires: 01/15/2026 documented as of this encounter Visit Diagnoses Diagnosis Anemia, unspecified type- Primary Transaminitis Nonspecific elevation of levels of transaminase or lactic acid dehydrogenase (LDH) documented in this encounter Additional Health Concerns Assessment Noted Time PHQ-9 Depression Total Score: 10 024 3:16 PM EDT documented as of this encounter Care Teams Warehouse Manager Relationship Specialty Start Date End Date Name, MD Justin [address] [place] [id number] PCP - General Internal Medicine 11/08/23 documented as of this encounter
--- OUTSIDE RECORDS SUMMARY | 2025-01-29 07:29 | XMS_ITS | Encounter Summary ---
Author Organization [employer] Address [address] [facility] [address] [place] [address] Care Team Providers Care Electrical And Radio Aircraft Mechanic Name Role Phone Name, Justin GREGORIO Primary Care Provider [phone] Reason for Visit * Reason Onset Date Comments CHARTPREP 01/24/2025 Encounter Details Date Type Department Care Team ([facility] Contact Info) Description 01/24/2025 Telephone [facility] MEDICINE [address] [place], [place] [phone] Name, MD Justin [address] [place] [address] CHARTPREP Social History Tobacco Use Types Packs/Day Years [...] AM EDT documented as of this encounter Miscellaneous Notes * Telephone Encounter - Russell Montemayor MA - 01/24/2025 11:42 AM EST Chart Prep Labs: done except order placed 01/15/25 Images: done Referrals: not applicable Vaccines due: Covid, Flu, Hep B, and HPV Screenings: HIV screening,alcohol/substance use screening,family screening,Hep C screening, Overdue care gaps: SBIRT, SDOH, PHQ-9, MT-7, Oral health screening, and Tobacco,disability screening documented in this encounter Plan of Treatment Not on file documented as of this encounter Visit Diagnoses Not on filedocumented in this encounter Additional Health Concerns Assessment Noted Time PHQ-9 Depression Total Score: 10 024 3:16 PM EDT documented as of this encounter Care Teams Electrical And Radio Aircraft Mechanic Relationship Specialty Start Date End Date Name, MD Justin [address] [place] [address] PCP - General Internal Medicine 11/08/23 documented as of this encounter
--- OUTSIDE RECORDS SUMMARY | 2025-01-29 07:29 | XMS_ITS | Clinical Summary ---
Author Organization [employer] Address [address] [place] [address] [address] [place] [address] Care Team Providers Care Mutuel Clerk Name Role Phone Name, Justin GREGORIO Primary Care Provider Allergies Active Allergy Reactions Criticality Noted Date Comments Penicillins Unknown 12/15/2016 Medications azelastine (Astelin) 0.1 % nasal spray Administer 2 sprays into each nostril 2 times daily. 30 mL 5 01/21/20 25 Discontinu ed(Therapy completed) benzonatate (Tessalon Perles) 100 MG capsule Take 1 capsule prn cough every 8 hours 20 capsule 5 01/21/20 25 Discontinu ed(Therapy completed) Active Problems Problem Noted Date Diagnosed Date Osteoarthritis of multiple joints 01/27/2025 Overview (01/27/2025): Left hip diagnosed by x-ray 2019, cervical spine diagnosed by MRI 2021 Assessment & Plan (01/27/2025 3:35 PM EST): - Osteoarthritis in the neck and left hip, secondary to prior sports injuries. Symptoms managed with intermittent naproxen and physical activity. No current interference with activities of daily living. - Recommended continued physical activity and strengthening of periarticular muscles. Advised use of naproxen as needed for symptom flares. 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 (CMS/HCC) (CMS/HCC) 04/04/2018 Encounters Date Type Department Care Team Description 01/27/2025 2:45 PM EST Office Visit [address] [address] Justin Painter MD Healthcare maintenance (Primary Dx); Osteoarthritis of multiple joints, unspecified osteoarthritis type; Dietary counseling; Exercise counseling 01/27/2025 Travel 01/24/[address] [id number] Justin Painter MD CHARTPREP 01/20/2025 Patient Outreach [address] [address] Justin Painter MD Pre-visit Planning (Pre-visit planning - LVM ) 01/20/2025 Orders Only [address] [address] Justin Painter MD Screening for diabetes mellitus (Primary Dx) 01/15/2025 Results Follow-Up [address] [address] Justin Painter MD CBC auto differential, Comprehensive Metabolic Panel, Lipid Panel, Standard 01/08/2025 Orders Only [address] [address] Justin Painter MD Screening for diabetes mellitus (Primary Dx); Screening for cholesterol level from Last 3 Months Immunizations Immunization Administration Dates Next Due Influenza Injectable Quadriv alant Preservative Free IIV4 MDCK 12/01/2019 Influenza injectable quadriv alent IIV4 with preservative 12/15/2016 Influenza injectable quadrivalent preservative f ree 11/24/2018,11/17/2014 Tdap 07/22/2021 Family History Medical History Relation Name Comments Diabetes insipidus Father Hypertension Father Diabetes Maternal Grandmother Hypertension Mother Diabetes Paternal Grandfather Relation Name Status Comments Father Maternal Grandmother Mother Paternal Grandfather Social History Tobacco Use Types Packs/Day Years [...] housing situation today? I have danieljenn quiñonez 01/27/[address] you [...] Mass Index 29.38 01/27/2025 3:00 PM EST Plan of Treatment Health Maintenance Due Date Last Done Comments HIV Screening 1992 Family Planning (PISQ) 2007 HPV Vaccines (1 - Male 3-dose series) 2007 Hepatitis C Screening 2010 Hepatitis B Vaccines (1 of 3 - 19+ 3-dose series) 2011 COVID-19 Vaccine ( season) 2024 04/05/2021, 06/15/2020, 05/18/2020 Influenza Vaccine (#1) 2024 , 11/24/2018, 12/15/2016, Additional history exists Alcohol/Substance Use Screening 01/27/2026 01/27/2025 Depression Screening 01/27/2026 01/27/2025, 01/28/20 25 Disability Screening 01/27/2026 01/27/2025 SDOH Screening 01/27/2026 01/27/2025 Tobacco Screening 01/27/2026 01/27/2025 DTaP/Tdap/Td Vaccines (2 - Td or Tdap) [...] Procedure Name Priority Date/Time Associated Diagnosis Comments LIPID PANEL, STANDARD Routine 01/13/2025 7:43 AM EST Screening for diabetes mellitus Screening for cholesterol level COMPREHENSIVE METABOLIC PANEL Routine 01/13/2025 7:43 AM EST Screening for diabetes mellitus Screening for cholesterol level CBC WITH AUTO DIFFERENTIAL Routine 01/13/2025 7:43 AM EST Screening for diabetes mellitus Screening for cholesterol level from Last 3 Months Results * (ABNORMAL) CBC auto differential (01/13/2025 7:43 AM EST) White Blood Count 4.5(L) 4.8 - 10.8 X10*3/uL [facility] Red Blood Count 4.57(L) 4.60 - 5.80 X10*6/uL [facility] Hemoglobin 13.7(L) 14.0 - 18.0 g/dl [facility] Hematocrit 40.4(L) 42.0 - 52.0 % [facility] Mean Corpuscular Volume 88.4 80.0 - 98.0 fL [facility] Mean Corpuscular Hemoglobin 30.0 27.0 - 33.0 pg [facility] Mean Corpuscular HGB Conc 33.9 31.0 - 36.0 g/dl [facility] Red Cell Distribution Width 11.9 11.0 - 16.0 % [facility] Platelet Count 268 160 - 400 X10*3/uL [facility] Mean Platelet Volume 10.9 9.4 - 12.4 fL [facility] Neutrophils Percent Auto 46.8 45 - 73 % [facility] Imm Gran Pct Auto 0.4 0.0 - 0.4 % [facility] Lymphocytes Percent Auto 36.9 20 - 40 % [facility] Monocytes Percent Auto 12.4(H) 2 - 11 % [facility] Eosinophils Percent Auto 2.2 0 - 4 % [facility] Basophils Percent Auto 1.3 0 - 2 % [facility] NRBC Pct Auto 0.0 0.0 - 0.2 /100WBC [facility] Neutrophils Absolute Auto 2.1 2.0 - 8.3 x10*3/uL [facility] Imm Gran Abs Auto 0.02 0.00 - 0.03 X10*3/uL [facility] Lymphocytes Absolute Auto 1.7 1.2 - 4.9 X10*3/uL [facility] Monocytes Absolute Auto 0.6 0.1 - 1.2 X10*3/uL [facility] Eosinophils Absolute Auto 0.1 0.0 - 0.4 X10*3/uL [facility] Basophils Absolute Auto 0.1 0.0 - 0.2 X10*3/uL [facility] NRBC Abs Auto 0.000 0.0 - 0.012 X10*3/uL [facility] Blood Venous blood specimen / Unknown 01/13/2025 7:43 AM EST 01/13/2025 7:43 AM EST us Justin Name MD LAB BLOOD ORDERABLES Final Resul t [facility] [address] [place] [phone] * (ABNORMAL) Lipid Panel, Standard (01/13/2025 7:43 AM EST) Triglycerides 137 <150 mg/dL [facility] Comment:Desirable Triglyceri de: less than 150 mg/dLBorderline High Triglyceride 150-199 mg/dLHigh Triglyceride: 200-499 mg/dLVery High Triglyceride: greater than or equal to 5OO mg/dL Cholesterol 165 <200 mg/dL [facility] Comment:Desirable Cholestero l: less than 200 mg/dLBorderline High Cholesterol: 200-239 mg/dLHigh Cholesterol: greater than 239 mg/dL LDL Cholesterol Calculated 99 <100 mg/dL [facility] Comment:Desirable LDL: less than 100 mg/dLNear Optimal/Above Optimal LDL: 110- 129 mg/dLBorderline High LDL: 130-159 mg/dLHigh LDL: 160-189 mg/dLVery High LDL: greater than or equal to 190 mg/dL HDL Cholesterol 39(L) >40 mg/dL [facility] Comment:Desirable HDL: great er than 40 mg/dL Note: This HDL assay may give artificially low results in patients with liver disease. Blood Venous blood specimen / Unknown 01/13/2025 7:43 AM EST 01/13/2025 7:43 AM EST us Justin Painter MD LAB BLOOD ORDERABLES Final Resul t Performing Organization Address [facility]/ZIP Co de Phone Number [facility] [address] [place] [address] [phone] * (ABNORMAL) Comprehensive Metabolic Panel (01/13/2025 7:43 AM EST) Sodium 138 135 - 145 mmol/L [facility] Potassium 4.4 3.3 - 5.1 mmol/L [facility] Chloride 105 96 - 108 mmol/L [facility] Carbon Dioxide 25 22 - 29 mmol/L [facility] Anion Gap 12 12 - 20 [facility] Urea Nitrogen (BUN) 14 9 - 16 mg/dL [facility] Creatinine, Serum 1.03 0.5 - 1.4 mg/dL [facility] Estimated Glomerular Filt Rate >60 [facility] Comment:Chronic Kidney Disea se: Estimated GFR < 60 mL/min/[id number] Kidney Disease: Estimated GFR < 15 mL/min/1.73m2 Glucose 112 60 - 115 mg/dL [facility] Calcium 9.3 8.4 - 10.2 mg/dL [facility] Bilirubin, Total 0.7 0.0 - 1.0 mg/dL [facility] Aspartate Amino Transferase 49(H) 5 - 37 U/L [facility] Alanine Aminotransferase 67(H) 0 - 40 U/L [facility] Total Protein 7.2 6.5 - 8.0 g/dL [facility] Albumin Level 4.6 3.5 - 5.0 g/dL [facility] Alkaline Phosphatase 77 39 - 117 U/L [facility] Blood Venous blood specimen / Unknown 01/13/2025 7:43 AM EST 01/13/2025 7:43 AM EST us Justin Painter MD LAB BLOOD ORDERABLES Final Resul t [facility] [address] [place] [address] [phone] from Last 3 Months Insurance [facility] H[employer] Care Teams Mutuel Clerk Relationship Specialty Start Date End Date Name, MD Justin [address] [place] [phone] PCP - General Internal Medicine 11/08/23
[2025-01-29 07:34] LABS: MANUAL DIFF FLAG NO
[2025-01-29 07:57] LABS: Hematocrit 41.5 % (42.0-52.0); Hemoglobin 14.4 g/dl (14.0-18.0); Imm Gran Abs Auto 0.02 X10*3/uL (0.00-0.03); Imm Gran Pct Auto 0.4 % (0.0-0.4); Lymphocytes Absolute Auto 1.8 X10*3/uL (1.2-4.9); Mean Corpuscular HGB Conc 34.7 g/dl (31.0-36.0); Mean Corpuscular Hemoglobin 30.3 pg (27.0-33.0); Mean Corpuscular Volume 87.4 fL (80.0-98.0); NRBC Abs Auto 0.000 X10*3/uL (0.0-0.012); NRBC Pct Auto 0.0 /100WBC (0.0-0.2); Platelet Count 274 X10*3/uL (160-400); Red Blood Count 4.75 X10*6/uL (4.60-5.80); White Blood Count 5.0 X10*3/uL (4.8-10.8)
[2025-01-29 08:39] LABS: Alanine Aminotransferase 61 U/L (0-40); Albumin Level 5.0 g/dL (3.5-5.0); Alkaline Phosphatase 78 U/L (39-117); Anion Gap 10 (12-20); Aspartate Amino Transferase 38 U/L (5-37); Blood Urea Nitrogen 17 mg/dL (9-16); Calcium 10.0 mg/dL (8.4-10.2); Carbon Dioxide 29 mmol/L (22-29); Chloride 106 mmol/L (96-108); Estimated Glomerular Filt Rate > 60; Potassium 4.7 mmol/L (3.3-5.1); Sodium 140 mmol/L (135-145); Total Protein 7.7 g/dL (6.5-8.0)
== END 2025-01-29 07:24 | disposition home or self-care (01) ==
LOC: HO.LAB 07:23
PROVIDERS: PCP Internal Medicine Geriatric Medicine; Visit Provider Internal Medicine Geriatric Medicine
DX: Z13.1 Encounter for screening for diabetes mellitus (principal); D64.9 Anemia, unspecified; R74.01 Elevation of levels of liver transaminase levels
CPT/HCPCS: 36415; 80053; 83036; 85025